=== PATIENT | male | born 1990 | race Caucasian/White ===

== ENCOUNTER 2020-03-21 15:29 | Emergency (ER) | payer OTHER ==
[~2020-03-21] VITALS: Ht 182.9 cm; Wt 74.8 kg
[2020-03-21] MEDS ORDERED: VENTOLIN HFA 1818 GM INH (16:34)
[2020-03-21 16:41] VITALS: BP 120/63
== END 2020-03-21 16:42 | disposition home or self-care (01) ==
LOC: M.ERS 15:29
DX: R51.9 Headache, unspecified (principal); Z20.828 Contact with and (suspected) exposure to other viral communicable diseases; R06.02 Shortness of breath; F17.210 Nicotine dependence, cigarettes, uncomplicated

== ENCOUNTER 2021-05-29 15:32 | Emergency (ER) | payer OTHER ==
[~2021-05-29] VITALS: Ht 185.4 cm; Wt 70.8 kg
[~2021-05-29 15:32] MED LIST: VENTOLIN HFA 1818 GM INH
[2021-05-29 17:41] LABS: HEMATOCRIT 38.2 % (42.0-52.0); MCH 32.7 pg (26.0-34.0); MCHC 34.1 g/dL (28.0-37.0); MCV 95.9 fL (80.0-100.0); MPV 7.8 fl. (7.2-11.1); RBC 3.98 mil/uL (4.50-6.00); RDW-CV 13.7 % (10.5-14.5); WBC 10.5 thou/uL (4.0-11.0)
[2021-05-29 17:46] LABS: CALCIUM 8.5 mg/dL (8.5-10.1); CREATININE 0.8 mg/dL (0.6-1.3); POTASSIUM 3.9 mmol/L (3.5-5.1)
[2021-05-29 18:22] VITALS: BP 110/60
== END 2021-05-29 18:23 | disposition home or self-care (01) ==
LOC: M.ERS 15:32
PROVIDERS: Physician Assistant
DX: M25.551 Pain in right hip (principal); M79.651 Pain in right thigh; X50.1XXA Overexertion from prolonged static or awkward postures, initial encounter; Y93.89 Activity, other specified; Y92.89 Other specified places as the place of occurrence of the external cause; Y99.8 Other external cause status